=== PATIENT | male | born 1995 | race African-American/Black ===

== ENCOUNTER 2025-05-25 20:47 | Emergency (ER) | payer OTHER, SELFPAY ==
--- NOTE | 2025-05-25 20:50 | ED.GENADULT ---
HPI - General Adult General Chief complaint: Allergic Reaction Stated complaint: allergic reaction bee sting Time Seen by Provider: 05/25/25 20:54 Source: patient, RN notes reviewed and old records reviewed Mode of arrival: ambulatory Limitations: no limitations History of Present Illness ED Provider: Tiffany MATUTE narrative: 29-year-old male with no significant past medical history presents for evaluation of allergic reaction. The patient believes he was stung by a bee about 30 minutes prior to arrival. He has never had a reaction previously. His significant other gave him an EpiPen injection due to swelling of his face and a diffuse rash. He denies any difficulty breathing or swallowing He also complains of some nausea Related Data Previous Rx's ?Medication ?Instructions ?Recorded epinephrine 0.3 mg/0.3 mL 0.3 mg (0.3 mL) IM Q10M PRN 05/25/25 injection, auto-injector (Auvi-Q) anaphylaxis #2 ea prednisone 20 mg tablet 40 mg (2 x 20 mg) PO DAILY #10 tabs 05/25/25 Allergies Allergy/AdvReac Type Severity Reaction Status Date / Time bee pollen (bee stings) Allergy Severe Anaphylaxis Verified 05/25/25 20:58 Review of Systems Constitutional: Constitutional: Reports as per HPI, Denies chills and Denies fever(s) ENT: Denies sore throat and Denies throat swelling Cardiovascular: Cardiovascular: Denies chest pain and Denies dyspnea Respiratory: Respiratory: Denies dyspnea Integumentary/Breasts: Skin/Breast: Reports pruritus and Reports rash Allergic/Immunologic: Allergic/Immunologic: Denies throat swelling PMFSH Social History Social History Advance Directives: No Advance Directives Information Provided: Yes Do you have a plan to hurt others: No Plan Physical Exam ED Vital Signs: Vital Signs - 24 hr 05/25/25 20:56 Temperature 98.0 F Pulse Rate 102 H Respiratory Rate 20 Blood Pressure 128/67 Pulse Oximetry 99 Oxygen Delivery Method Room Air BMI result Body Mass Index 31.6 Const General: healthy appearing, comfortable, no acute distress, alert and awake Nutritional Appearance: well nourished Orientation/consciousness: patient oriented x3 HENMT Other: No retropharyngeal edema. There is some mild perioral edema involving the lips. Airway remains widely Head: Yes normocephalic and Yes atraumatic Eyes Eyelids: Yes eyelids normal Conjunctivae: conjunctivae normal Sclerae: sclerae normal Corneas: corneas normal Pupils: Equal, round and reactive pupils present EOM: EOMs intact bilaterally Neck Neck: Yes full ROM Resp Effort & Inspection: normal respiratory effort, able to speak in complete sentences, no audible wheezes and not labored Auscultation: clear to auscultation bilaterally Cardio Rate: regular rate Rhythm: regular rhythm Skin General skin exam: elasticity normal Neuro General: patient oriented x3 Cranial nerves: Yes Equal, round and reactive pupils present and Yes Bilaterally intact EOM present Cognition (Neuro): normal cognition Extrem Other: Moving all extremities well without any obvious deformities Course Course Course Narrative: RME, this is a rapid medical exam performed by Tony Allen please refer to primary provider for complete H&P- 29-year-old male with no significant past medical history presents for evaluation after a bee sting. He has no known allergies, he was stung on the right side of the face he has a temporal region about 30 minutes prior to arrival. He immediately had facial swelling and an itchy rash over his entire body. He was given an EpiPen. No difficulty breathing or swallowing. He does have some facial edema on exam with diffuse urticaria Reevaluation(s) Reevaluation #1: The patient reports that his itching has resolved but he is nauseous. His facial swelling is also improving Time: 21:39 Reevaluation #2: Patient reports no further itching or swelling. He reports feeling much better. He is somewhat drowsy from the Benadryl but otherwise stable for discharge. Time: 22:48 Medications Administered Discontinued Medications Generic Name Dose Route Start Last Admin Trade Name Evelina PRN Reason Stop Dose Admin Diphenhydramine HCl 50 mg 05/25/25 20:52 05/25/25 22:08 Diphenhydramine Hcl 50 Mg/Ml Vial IVPUSH 05/25/25 20:53 50 mg ONCE ONE Administration Famotidine 20 mg 05/25/25 20:52 05/25/25 22:08 Famotidine/Pf 20 Mg/2 Ml Vial IVPUSH 05/25/25 20:53 20 mg ONCE ONE Administration Methylprednisolone Sodium Succinate 125 mg 05/25/25 20:52 05/25/25 22:07 Methylprednisolone Sod Succ 125 Mg/2 Ml Vial IVPUSH 05/25/25 20:53 125 mg ONCE ONE Administration Ondansetron HCl 4 mg 05/25/25 21:51 05/25/25 22:03 Ondansetron Hcl 4 Mg/2 Ml Vial IVPUSH 05/25/25 21:52 4 mg ONCE ONE Administration Medical Decision Making Medical Decision Making [facility] Narrative: 29-year-old male presents for evaluation of a true reaction. He appears to have mild anaphylaxis with facial swelling and a diffuse, itchy rash. There was no stridor on exam, airway remains widely patent Differential Diagnosis Differential Diagnoses: The differential diagnosis associated with the presentation includes Anaphylaxis Urticaria Allergic reaction Dermatitis Lab Data 05/25/25 21:24 05/25/25 21:24 Labs: Lab Results 05/25/25 Range/Units 21:24 WBC 12.1 H (4.8-10.8) X10*3/uL RBC 5.83 H (4.60-5.80) X10*6/uL Hgb 15.7 (14.0-18.0) g/dl Hct 44.8 (42.0-52.0) % MCV 76.8 L (80.0-98.0) fL MCH 26.9 L (27.0-33.0) pg MCHC 35.0 (31.0-36.0) g/dl RDW 13.8 (11.0-16.0) % Plt Count 212 (160-400) X10*3/uL MPV 10.3 (9.4-12.4) fL Immature Gran % (Auto) 0.3 (0.0-0.4) % Neut % (Auto) 55.4 (45-73) % Lymph % (Auto) 41.0 H (20-40) % Mckinley % (Auto) 2.9 (2-11) % Eos % (Auto) 0.3 (0-4) % Baso % (Auto) 0.1 (0-2) % Lymph # (Auto) 5.0 H (1.2-4.9) X10*3/uL Mck[place]ley # (Auto) 0.4 (0.1-1.2) X10*3/uL Eos # (Auto) 0.0 (0.0-0.4) X10*3/uL Baso # (Auto) 0.0 (0.0-0.2) X10*3/uL Abs Immat Gran (auto) 0.04 H (0.00-0.03) X10*3/uL Absolute Neuts (auto) 6.7 (2.0-8.3) x10*3/uL Absolute Nucleated RBC 0.000 (0.0-0.012) X10*3/uL Nucleated RBC % (auto) 0.0 (0.0-0.2) /100WBC Sodium 137 (135-145) mmol/L Potassium 3.5 (3.3-5.1) mmol/L Chloride 104 (96-108) mmol/L Carbon Dioxide 22 (22-29) mmol/L Anion Gap 15 (12-20) BUN 16 (9-16) mg/dL Creatinine 0.97 (0.5-1.4) mg/dL Estim Creat Clear Calc 133.0 Estimated GFR > 60 Random Glucose 226 H (60-115) mg/dL Calcium 8.8 (8.4-10.2) mg/dL Discharge Plan Discharge Clinical Impression: Anaphylaxis Patient Disposition: Home, Self-Care Instructions: General Allergic Reaction (ED) Additional Instructions: It looks like you have an allergy to bee stings. You may take Benadryl every 4-6 hours as needed for itching, rash or swelling. Take prednisone 40 mg daily for the next 3 days. I sent a prescription for an EpiPen 2 pack to your pharmacy, you should only use this if you have facial swelling, difficulty breathing or swallowing You do not use the EpiPen if you have a rash alone You should present to the emergency room immediately after using an EpiPen Prescriptions: New prednisone 20 mg tablet 40 mg PO DAILY Qty: 10 0RF epinephrine [Auvi-Q] 0.3 mg/0.3 mL auto-injector 0.3 mg IM Q10M PRN (Reason: anaphylaxis) Qty: 2 0RF Rx Instructions: for 2 doses Print Language: Citizen Of [place]
--- NOTE | 2025-05-25 20:53 | ECG_ITS ---
Test Reason : TACHY Blood Pressure : */* mmHG Vent. Rate : 91 BPM Atrial Rate : 91 BPM P-R Int : 156 ms QRS Dur : 92 ms QT Int : 364 ms P-R-T Axes : 61 69 4 degrees QTcB Int : 447 ms Normal sinus rhythm Cannot rule out Anterior infarct , age undetermined Abnormal ECG No previous ECGs available Referred By: Cristian Allen Electronically Signed By: YONAS VYAS MD
[2025-05-25 20:56] VITALS: BP 128/67; PULSE 102; RESP 20; TEMP 36.7; O2SAT 99; BMI 31.6
[2025-05-25 21:29] LABS: MANUAL DIFF FLAG NO
[2025-05-25 21:30] LABS: Hematocrit 44.8 % (42.0-52.0); Hemoglobin 15.7 g/dl (14.0-18.0); Imm Gran Abs Auto 0.04 X10*3/uL (0.00-0.03); Imm Gran Pct Auto 0.3 % (0.0-0.4); Lymphocytes Absolute Auto 5.0 X10*3/uL (1.2-4.9); Mean Corpuscular HGB Conc 35.0 g/dl (31.0-36.0); Mean Corpuscular Hemoglobin 26.9 pg (27.0-33.0); Mean Corpuscular Volume 76.8 fL (80.0-98.0); NRBC Abs Auto 0.000 X10*3/uL (0.0-0.012); NRBC Pct Auto 0.0 /100WBC (0.0-0.2); Platelet Count 212 X10*3/uL (160-400); Red Blood Count 5.83 X10*6/uL (4.60-5.80); White Blood Count 12.1 X10*3/uL (4.8-10.8)
[2025-05-25 21:44] LABS: Anion Gap 15 (12-20); Blood Urea Nitrogen 16 mg/dL (9-16); Calcium 8.8 mg/dL (8.4-10.2); Carbon Dioxide 22 mmol/L (22-29); Chloride 104 mmol/L (96-108); Creatinine Clr Calc Pharmacy 133.0; Estimated Glomerular Filt Rate > 60; Potassium 3.5 mmol/L (3.3-5.1); Sodium 137 mmol/L (135-145)
[2025-05-25 22:59] VITALS: BP 115/73; PULSE 74; RESP 14; TEMP 36.6; O2SAT 97
== END 2025-05-25 23:08 | disposition home or self-care (01) ==
PROVIDERS: Physician Assistant; Emergency Provider Emergency Medicine Emergency Medical Services
DX: T63.441A Toxic effect of venom of bees, accidental (unintentional), initial encounter (principal); R00.0 Tachycardia, unspecified; Y92.9 Unspecified place or not applicable
CPT/HCPCS: 36415; 80048; 85025; 93005; 96374; 96375; 99283; 99284; J1200; J1308; J2405; J2919

== ENCOUNTER → 2025-05-25 20:53 | Outpatient (BNV) | payer OTHER, SELFPAY | PROVIDERS: Emergency Provider Emergency Medicine Emergency Medical Services; Visit Provider Internal Medicine Cardiovascular Disease | DX: R00.0 Tachycardia, unspecified (principal) | CPT/HCPCS: 93010 ==